=== PATIENT | female | born 1975 | race African-American/Black ===

== ENCOUNTER 2018-01-16 17:45 | Emergency (ER) | payer SELFPAY ==
[2018-01-16] MEDS: IBUPROFEN 800 MG TAB PO (19:21)
== END 2018-01-16 19:37 | disposition home or self-care (01) ==
LOC: E/R 17:45
DX: D25.9 Leiomyoma of uterus, unspecified (principal); F17.210 Nicotine dependence, cigarettes, uncomplicated
CPT/HCPCS: 99284